=== PATIENT | female | born 1985 | race Two or more races ===

== ENCOUNTER 2016-09-15 08:24 | Emergency (ER) | payer MEDICARE, MEDICAID ==
[2016-09-15 08:45] VITALS: BP 139/100; PULSE 74; RESP 30; O2SAT 98
[2016-09-15] MEDS ORDERED: PHEN20EL4 PO (08:52)
--- NOTE | 2016-09-15 09:03 | ED.REPORT ---
HPI-Dyspnea / Wheezing Date of Service Sep 15, 2016 ED Provider: Dr. Fortune Pt is a nonverbal 31 y/o female w/ a hx of cerebral palsy, seizures, presenting to the ED with her mother due to possible trouble breathing onset this morning. The mother noticed that the patient was grunting which caused them to think that she was having trouble breathing which lasted about 15 minutes. She has never done this previously and is at baseline at time of interview. The family also notes abnormally increased abdominal distention which they attribute to constipation. The family does not believe she is in pain. They deny vomiting, fever, diarrhea, cough, recent trauma. She has not missed any doses of her seizure medication Phenobarbital. Nursing Notes Stated Complaint: SHORTNESS OF BREATH Chief Complaint: Respiratory Complaints Nursing Notes Reviewed: Yes Allergies: Coded Allergies: No Known Allergies (Unverified , 09/15/16) Scheduled Phenobarbital (Phenobarbital) 20 Mg/5 Ml Elixir 20 MG PO DAILY General Time Seen by MD: 09:03 Chief Complaint Shortness of breath Hx Obtained From: Other family... (Mother) Arrived By: Wheelchair Sudden in Onset?: No Onset Occurred: 1 - 4 hours ago Symptom Duration: Since onset Severity: Current: No pain currently Severity: Maximum: No pain Similar Sx Previous: No Past Medical History Past Medical History Notes: PCP: Gianluca Past Medical History Cerebral palsy - since Seizures Nonverbal Past Surgical History None reported Smoking History Never Smoker Social History Alcohol Use: Denies alcohol use Drug Use: Denies drug use Review of Systems Review of Systems Note: + abdominal distention Constitutional: Denies: Chills, Fever Respiratory: Reports: Shortness of breath, Denies: Non-productive cough, Pleuritic pain Cardiovascular: Denies: Chest pain, Edema Complete sys rev & neg: except as marked. GI: Reports: Constipation, Denies: Abdominal pain, Diarrhea, Nausea, Vomiting Neurologic: Denies: Seizure, Shaking Physical Exam Initial Vital Signs Vital Signs (First) Date Time Temp Pulse Resp B/P Pulse Ox O2 Delivery O2 Flow Rate FiO2 09/15/16 08:45 35.8 74 30 139/100 98 Room Air Initial VS: Reviewed, Vital signs abnormal Head / Eyes: Atraumatic, Normocephalic, PERRL ENT: Mucous membranes moist, Conjunctiva normal, No scleral icterus Extremities: Vascular intact, No swelling Skin: Warm, Dry, No cyanosis Neurologic: Nonfocal General/Constitutional: Awake, No acute distress, Not toxic appearing Neck: Atraumatic, Supple, No meningismus, Full range of motion Respiratory / Chest: Atraumatic, No respiratory distress, No rales, No wheezing , No retractions, No stridor, No chest tenderness, No chest wall deformity, No crepitus Scattered rhonchi Cardiovascular: Heart rate NL, Regular rhythm, Heart sounds NL, No gallop, No murmurs, No rubs, Cap refill not delayed, Peripheral circulation NL Abdomen: Atraumatic, Non-tender Very tense, distended abdomen Rectum / Perineum: Atraumatic, Blood - occult heme - Rectum is full of soft brown stool Interpretation & Diagnostics Interpretation & Diagnostics: CT chest/abd/pelvis with contrast: IMPRESSION: 1. Marked gaseous distention of the colon extending to the rectum which demonstrates marked colonic stool distention. The findings likely represent a colonic obstruction secondary to fecal impaction in the rectum. No definite evidence of sigmoid volvulus or small bowel obstruction. Findings discussed Dr. Fortune on 09/15/16 at 11:55 a.m. 2. Bilateral upper lobe medial opacities suggestive of scarring or resolving consolidation. Dictated by: Tadeo Lopez M.D. on 09/15/2016 at 11:49 Approved by: Tadeo Lopez M.D. on 09/15/2016 at 12:03 Lab Results Interpretation Result Diagram: 09/15/16 0953 09/15/16 0953 Test 09/15/16 09:53 09/15/16 10:05 White Blood Count 12.0th/mm3 (3.8-10.1) Red Blood Count 4.43mil/mm3 (3.90-5.20) Hemoglobin 12.6g/dL (12.0-15.6) Hematocrit 38.4% (35.0-46.0) Mean Corpuscular Volume 86.7fL (81-100) Mean Corpuscular Hemoglobin 28.4pg (27.0-35.0) Mean Corpuscular Hemoglobin Concent 32.8% (32.0-37.0) Red Cell Distribution Width 15.2% (12.3-15.4) Platelet Count 354bil/L (150-400) Neutrophils (%) (Auto) 87.0% (40-74) Lymphocytes (%) (Auto) 6.9% (14-46) Monocytes (%) (Auto) 5.5% (4-12) Eosinophils (%) (Auto) 0.2% (0-5) Basophils (%) (Auto) 0.2% (0-3) Prothrombin Time 11.0sec (8.1-12.5) Prothromb Time International Ratio 1.03ratio Sodium Level 133mEq/L (134-144) Potassium Level 4.9mEq/L (3.5-5.2) Chloride Level 98mEq/L (97-108) Carbon Dioxide Level 20mmol/L (18-29) Blood Urea Nitrogen 12mg/dL (6-20) Creatinine 0.57mg/dL (0.57-1.00) Estimat Glomerular Filtration Rate 175mL/min (>59) Glucose Level 123mg/dL (60-99) Lactic Acid Level 1.6mmol/L (0.4-2.0) Calcium Level 9.5mg/dL (8.5-10.1) Magnesium Level 1.9mg/dL (1.6-2.6) Total Bilirubin < 0.2mg/dL (0.0-1.2) Aspartate Amino Transf (AST/SGOT) 30U/L (0-50) Alanine Aminotransferase (ALT/SGPT) 29U/L (0-32) Alkaline Phosphatase 136U/L (25-150) Total Protein 8.5g/dL (6.4-8.4) Albumin 4.4g/dL (3.4-5.0) Lipase 29U/L (13-60) Urine Color Yellow (YELLOW) Urine Appearance Clear (CLEAR,HAZY) Urine pH 6.0 (5.0-8.0) Urine Specific [place] 1.025 (1.003-1.035) Urine Protein Negativemg/dL (NEG,TRACE) Urine Glucose (UA) Negativemg/dL (NEGATIVE) Urine Ketones 15mg/dL (NEGATIVE) Urine Occult Blood Negative (NEGATIVE) Urine Nitrite Negative (NEGATIVE) Urine Bilirubin Negative (NEGATIVE) Urine Urobilinogen Normalmg/dL (NORMAL) Urine Leukocyte Esterase Negative (NEGATIVE) Urine RBC 0-2/hpf (0-2) Urine WBC 0-5/hpf (0-5) Urine Epithelial Cells Occasional/hpf (NONE-MOD) Urine Crystals None seen (NONE SEEN) Urine Bacteria Few/hpf (NONE-FEW) Urine Hyaline Casts None/lpf (NONE) Urine Granular Casts None seen (NONE SEEN) Urine Waxy Casts None seen (NONE SEEN) Urine Red Blood Cell Casts None seen (NONE SEEN) Urine White Blood Cell Casts None seen (NONE SEEN) Urine Mucus Present (None Seen) Urine Trichomonas None seen (NONE SEEN) Urine Yeast None (NONE SEEN) Urinalysis Comment None Urine Culture Reflexed Not indicated ECG Interpretation Time: 11:16 Interpreted by: ED physician Normal ECG Interpretation: Normal ECG w/ rate of... (65), Normal rate, Normal sinus rhythm, No acute ischemic changes, Normal QRS, Normal axis, Normal intervals, Adequate tracing Re-Eval/Medical Decision Med Decision/Clinical Course Good results with enema according to nurse. Patient feels better to go home. Re-Evaluation/Progress : Time of Eval: 09:40 Re-Evaluation/Progress Note: Pt rechecked. Informed family of the consult and workup. Consultation : Referral / Consult Name: Caitlyn Hough MD Consulted With: Primary care physician Call Returned at: 09:37 Hand Sole Sewer: Agrees with eval, Agrees with plan Note: States that the patient and her family go in to see her once every year and that if they came into the ED today with a complaint I should work her up thoroughly. Counseled Regarding: Diagnosis, Need for follow-up, When/why to return to ED Discharge & Departure Impression: Primary Impression: Constipation Constipation type: unspecified constipation type Qualified Code: K59.00 - Constipation, unspecified Disposition: Home Discharge Condition All VS Reviewed: Yes Condition: Stable Patient Instructions: Constipation (ED) Additional Instructions: No dangerous conditions are identified today. Use a fleets enema in the future if the problem occurs again. Otherwise, take MiraLAX 17 g dissolved in water daily to prevent this problem in the future. Referrals: Caitlyn Hough MD (PCP) Scribe Attestation Portions of this note were transcribed by Clayton Farah. I, Dr. Fortune, personally performed the history, physical exam and medical decision-making; I reviewed and confirmed the accuracy of the information in the transcribed note. Signed by Amira Rai, 09/15/16 - 1000 copies to: Caitlyn Hough MD, Kirk H MD Sep 15, 2016 09:03 CLAYTON FARAH Sep 15, 2016 09:14
[2016-09-15] MEDS ORDERED: 0.9% Sodium Chloride 1,000 ML IV ONE (09:37)
[2016-09-15 10:02] LABS: BASOPHILS % (AUTO) 0.2 % (0-3); EOSINOPHILS % (AUTO) 0.2 % (0-5); MONOCYTES % (AUTO) 5.5 % (4-12); Mean Corpuscular Hemoglobin 28.4 pg (27.0-35.0); Mean Corpuscular Volume 86.7 fL (81-100); Platelet Count 354 bil/L (150-400)
[2016-09-15 10:14] LABS: INR 1.03 ratio
[2016-09-15 10:21] LABS: Lipase 29 U/L (13-60); Magnesium 1.9 mg/dL (1.6-2.6)
[2016-09-15 10:29] LABS: APPEARANCE,URINE CLEAR (CLEAR,HAZY); COLOR,URINE YELLOW (YELLOW); OCCULT BLOOD,URINE NEGATIVE (NEGATIVE); UROBILINOGEN,URINE NORMAL (NORMAL)
--- NOTE | 2016-09-15 12:05 | DRSVH ---
PROCEDURE: CT CHEST, ABDOMEN AND PELVIS WITH CONTRAST ([id number]) INDICATIONS: Abdominal distention and dyspnea. TECHNIQUE: After the administration of intravenous contrast, 5 mm thick sections acquired from the lung apices t o the symphysis. 5 mm coronal and sagittal reformats were performed, with additional 7 mm MIP reform ats through the lungs. For radiation dose reduction, the following was used: automated exposure con trol, adjustment of mA and/or kV according to patient size. COMPARISON: None. FINDINGS: Image quality: There is motion artifact limiting evaluation. CHEST: Lungs and pleura: There is atelectasis in the lung bases. Medial linear opacities bilaterally in th e upper lobes are suggestive of scarring or resolving consolidation. No pleural effusions or pneumot horax. Central and peripheral airways appear patent and normal in caliber. Mediastinum: Heart size is normal. No pericardial effusion. No mediastinal or hilar adenopathy by size criteria. Thoracic aorta and central pulmonary arteries are normal in size. Esophagus is le l in caliber. No hiatal hernia. Chest wall: No axillary or supraclavicular adenopathy by size criteria. Thyroid gland is partially visualized without a discrete nodule. ABDOMEN: Solid organs: Liver and spleen are normal in size and enhancement. Gallbladder is nondistended with out calcified gallstones. Biliary system is non dilated. Pancreas enhances normally. No adrenal no dules. Kidneys demonstrate no hydronephrosis. Peritoneum and bowel: There is marked gaseous distention of the colon measuring up to 9.8 cm extendin g to the rectum which demonstrates marked stool distention with mild wall thickening and minimal fat stranding. No definite colonic twisting to suggest a sigmoid volvulus. The small bowel is nondisten ded. No free fluid or air. Nodes and vessels: No retroperitoneal or mesenteric adenopathy by size criteria. Aorta and inferior vena cava are normal in size. Miscellaneous: No ventral hernias. PELVIS: Genitourinary: Bladder wall thickness is normal. Miscellaneous: No inguinal hernias or adenopathy. Bones: No suspicious bony lesions. No vertebral body compression fractures. IMPRESSION: 1. Marked gaseous distention of the colon extending to the rectum which demonstrates marked colonic stool distention. The findings likely represent a colonic obstruction secondary to fecal impaction i n the rectum. No definite evidence of sigmoid volvulus or small bowel obstruction. Findings discussed Dr. oFrtune on 09/15/16 at 11:55 a.m. 2. Bilateral upper lobe medial opacities suggestive of scarring or resolving consolidation. Dictated by: Tadeo Lopez M.D. on 09/15/2016 at 11:49 Approved by: Tadeo Lopez M.D. on 09/15/2016 at 12:03
[2016-09-15] MEDS ORDERED: Sodium Biphos-Phos 133 mL Enema RECTAL ONE (13:30)
[2016-09-15 13:42] VITALS: BP 99/63; PULSE 74; RESP 15; O2SAT 95
== END 2016-09-15 13:44 | disposition home or self-care (01) ==
LOC: SED 08:24
DX: K59.00 Constipation, unspecified (principal); G80.9 Cerebral palsy, unspecified; G40.909 Epilepsy, unspecified, not intractable, without status epilepticus; F80.9 Developmental disorder of speech and language, unspecified; Z79.899 Other long term (current) drug therapy
CPT/HCPCS: 36415; 71260; 74177; 80053; 81000; 83605; 83690; 83735; 85025; 85610; 93005; 96361; 96374; 99285; J2060; J7030; Q9967